=== PATIENT | male | born 1970 | race Caucasian/White ===

== ENCOUNTER 2024-03-14 17:14 | Emergency (ER) | payer OTHER, SELFPAY ==
--- NOTE | ~2024-03-14 | XR_ITS ---
HISTORY: RT rib pain, fell on ice 2x days ago smoker COMPARISON: None TECHNIQUE: 3 views of the right ribs were performed along with a PA chest FINDINGS: No acute displaced fracture is appreciated. Bone mineralization is age-appropriate. The cardiac mediastinal silhouette is unremarkable. The lungs are clear. IMPRESSION: No acute displaced rib fracture. The lungs are clear. Reviewed, dictated and finalized at location A. [employer] PERSON
--- NOTE | ~2024-03-14 | XR_ITS ---
HISTORY: RT groin pain. fell on ice 2x days ago COMPARISON: None TECHNIQUE: 2 views of the right hip along with an AP view of the pelvis FINDINGS: No acute fracture or dislocation is identified. Superior lateral sclerosis of the femoral acetabular joint spaces bilaterally consistent with osteoar thritis. No significant degenerative disease within the visualized portion of the lower lumbar spine. Fecal stasis within the colon. Air within the rectum. Normal mineralization. IMPRESSION: Degenerative disease without acute fracture or dislocation Reviewed, dictated and finalized at location A. [employer]
[2024-03-14 17:30] VITALS: BP 110/72; PULSE 91; RESP 18; TEMP 36.4; O2SAT 100
--- NOTE | 2024-03-14 17:31 | ED.GENADULT ---
HPI - General Adult General Chief complaint: Extremity Problem,Nontraumatic Stated complaint: fall Time Seen by Provider: 03/14/24 17:31 Source: patient Mode of arrival: ambulatory Limitations: no limitations History of Present Illness HPI narrative: 53 yo M presents with c/o R groin pain and R rib pain. Pt fell 03/12 while at work. Slipped on ice. Landed on the right side. [place] he was unable to work today and asked for time off. Employer wanted pt to be seen for injuries prior. Patient ambulatory with limp. It took ibuprofen prior to arrival. Rates pain 04/12 . all systems reviewed and negative except as noted above. Related Data Home Medications ?Medication ?Instructions ?Recorded ?Confirmed ?Last Taken ?Type fludrocortisone 0.1 mg tablet mg 03/14/24 Unknown History levothyroxine 200 mcg tablet mcg 03/14/24 Unknown History (Synthroid) modafinil 200 mg tablet mg 03/14/24 Unknown History omeprazole 40 mg capsule,delayed mg 03/14/24 Unknown History release prednisone 5 mg tablet mg 03/14/24 Unknown History sertraline 100 mg tablet mg 03/14/24 Unknown History Allergies Allergy/AdvReac Type Severity Reaction Status Date / Time morphine AdvReac Intermediate other Verified 03/14/24 17:33 Review of Systems Review of Systems: CONSTITUTIONAL: Denies fever, chills, or sweats. EYES: Denies visual changes, redness, or discharge. ENT: Denies rhinorrhea, congestion, sore throat, or otalgia. CARDIOVASCULAR: Denies chest pain, palpitations, or edema. RESPIRATORY: Denies cough or dyspnea. GASTROINTESTINAL: Denies abdominal pain, nausea, vomiting, or diarrhea. GENITOURINARY: Denies dysuria or hematuria. SKIN: Denies rash or itching. MUSCULOSKELETAL: Denies back pain, joint pain, or myalgia. Reports pain to right groin and right ribs. NEUROLOGIC: Denies headache, numbness, or weakness. PSYCHIATRIC: Denies anxiety or depression. All other systems reviewed are negative, except as documented in HPI. PMFSH Comments At time of signature, agree with nursing past medical, surgical, social and family history. There is no relevant family history pertinent to the presenting complaint. Exam Narrative: GENERAL: This is a well-nourished, well-developed patient, in no apparent distress. HEAD: normocephalic, atraumatic. EYES: PERRL. Sclera clear/white. Vision is grossly intact. EARS: External ears normal NOSE: External nose normal NECK: Neck supple, non-tender without lymphadenopathy, masses or thyromegaly. CARDIOVASCULAR: Regular rate and rhythm without murmurs, gallops, or rubs. RESPIRATORY: Clear to auscultation. Breath sounds equal bilaterally. No wheezes, rales, or rhonchi. SKIN: warm, Dry, intact with no suspicious lesions or rash, good texture and turgor. NEURO: awake, alert, and oriented to person, place and time. There were no obvious focal neurologic abnormalities. EXTREMITIES: Tenderness to right groin area. Pain with abduction and adduction of right hip. MUSCULOSKELETAL: tenderness to anterior R ribs without bruising, deformity or swelling Course Course Level of Care: Express Care Visit Vital Signs Vital signs: Vital Signs Temperature 36.4 C 03/14/24 17:30 Pulse Rate 91 03/14/24 17:30 Respiratory Rate 18 03/14/24 17:30 Blood Pressure 110/72 03/14/24 17:30 Pulse Oximetry 100 03/14/24 17:30 Oxygen Delivery Room Air 03/14/24 17:30 Temperature 36.4 C 03/14/24 17:30 Pulse Rate 91 03/14/24 17:30 Respiratory Rate 18 03/14/24 17:30 Blood Pressure 110/72 03/14/24 17:30 Pulse Oximetry 100 03/14/24 17:30 Oxygen Delivery Room Air 03/14/24 17:30 Reviewed Medical Decision Making MDM Narrative Medical decision making narrative: x-rays of right hip and right ribs negative for fracture. Discussed results with patient. Recommend he continue [id number] ibuprofen to treat pain. Recommend ice, rest. Will follow-up with primary care physician if pain not improving. Patient is aware of diagnosis, understands and agrees to treatment plan. Anticipatory guidance given. Patient agrees to follow-up as directed and is aware of reasons to seek care at the emergency department. Portions of this record may have been created with voice recognition software Vital Signs Vital Signs: Vital Signs Temperature 36.4 C 03/14/24 17:30 Pulse Rate 91 03/14/24 17:30 Respiratory Rate 18 03/14/24 17:30 Blood Pressure 110/72 03/14/24 17:30 Pulse Oximetry 100 03/14/24 17:30 Oxygen Delivery Room Air 03/14/24 17:30 Temperature 36.4 C 03/14/24 17:30 Pulse Rate 91 03/14/24 17:30 Respiratory Rate 18 03/14/24 17:30 Blood Pressure 110/72 03/14/24 17:30 Pulse Oximetry 100 03/14/24 17:30 Oxygen Delivery Room Air 03/14/24 17:30 Imaging Data My impression: Agree with radiologist Radiologist's impression: HISTORY: RT rib pain, fell on ice 2x days ago smoker COMPARISON: None TECHNIQUE: 3 views of the right ribs were performed along with a PA chest FINDINGS: No acute displaced fracture is appreciated. Bone mineralization is age-appropriate. The cardiac mediastinal silhouette is unremarkable. The lungs are clear. IMPRESSION: No acute displaced rib fracture. The lungs are clear. Discharge Plan Discharge Clinical Impression: Strain of muscle of right groin region, Contusion of rib on right side, Fall due to ice or snow Patient Disposition: Home, Self-Care Condition: Stable Instructions: Groin Strain (ED), Rib Contusion (ED) Additional Instructions: the x-ray of your right hip and right ribs was negative for fracture. Take ibuprofen every 6-8 hours as needed for pain. Alternate between ice and heat to right groin. Do light stretching exercises as tolerated. Avoid activities that increase your pain. Follow-up with your primary care physician if pain is not improving. Patient Language: Filipino Prescriptions: No Action sertraline 100 mg tablet prednisone 5 mg tablet omeprazole 40 mg capsule,delayed release(DR/EC) modafinil 200 mg tablet levothyroxine [Synthroid] 200 mcg tablet fludrocortisone 0.1 mg tablet Follow-up/Referrals: UNKNOWN,DOCTOR [Primary Care Provider] - Stand Alone Forms: Work/School Release IP Time of Disposition: 18:58
== END 2024-03-14 19:00 | disposition home or self-care (01) ==
PROVIDERS: Emergency Provider Nurse Practitioner Family
DX: S39.011A Strain of muscle, fascia and tendon of abdomen, initial encounter (principal); S20.211A Contusion of right front wall of thorax, initial encounter; W00.9XXA Unspecified fall due to ice and snow, initial encounter; Y99.0 Civilian activity done for income or pay; E03.9 Hypothyroidism, unspecified; E25.0 Congenital adrenogenital disorders associated with enzyme deficiency
CPT/HCPCS: 71101; 73502; 99204; G0463